=== PATIENT | female | born 1990 | race Caucasian/White ===

== ENCOUNTER 2023-08-05 18:17 | Emergency (ER) | payer OTHER ==
[~2023-08-05] VITALS: Ht 154.9 cm; Wt 56.7 kg
[2023-08-05] MEDS ORDERED: NICOTINE LOZENGE4 MG BC (18:30)
[2023-08-05 21:31] VITALS: BP 112/73
== END 2023-08-05 21:31 | disposition home or self-care (01) ==
LOC: ER 18:17
DX: H53.8 Other visual disturbances (principal)
CPT/HCPCS: 70450; 99284-25